=== PATIENT | female | born 1990 | race Caucasian/White ===

== ENCOUNTER → 2020-08-05 | Outpatient (CLI) | payer BC ==
[~2020-08-05] MED LIST: ADVIL CHIL100 MG/5 M PO; OXYCODONE H5 MG/5 ML PO; PRENATAL 19 CH1 EACH PO
== END | disposition still patient (30) ==
LOC: ZCOL.LAB 08:00
DX: Z20.828 Contact with and (suspected) exposure to other viral communicable diseases (principal)

== ENCOUNTER 2020-08-06 03:40 | Inpatient (IN) | payer BC ==
[~2020-08-06] VITALS: Ht 157.5 cm; Wt 70.9 kg
[2020-08-06] VITALS (68 sets, daily range): BP systolic 92–144; BP diastolic 43–81; PULSE 80–133; TEMP 98.6–100.7
--- NOTE | 2020-08-06 03:15 | NUR ---
0315- PT. AMBULATORY TO THE UNIT WITH BY HER SIDE. ORIENTATED TO ROOM AND CHANGED INTO CLEAN GOWN. REPORTS GFM, CTX SINCE LAST NIGHT AFTER DINNER AND SROM AT 0240 AT HOME WITH A LARGE GUSH OF WATER. 0323- EFM AND TOCO ON AND TRACING. VITALS TAKEN, ASSESSMENT COMPLETED. SVE /-3 WITH POSITIVE AMNIOTRACE INDICATED. 0335- PROVIDER TEST CELL TECHNICIAN NOTIFIED AND ADMISSION ORDERS OBTAINED, SEE PHYSICIAN NOTIFICATION.
[2020-08-06] MEDS ORDERED: PRENATAL 19 CH1 EACH PO (03:57)
[2020-08-06 05:09] LABS: BASO # 0.1 (0.0-0.2); BASO % 0.5 % (0.0-2.0); EOS # 0.2 (0.0-0.7); EOS % 1.3 % (0-4.0); GRAN # 10.4 (1.4-6.5); GRAN % 78.4 % (42.2-75.2); HEMATOCRIT 37.3 % (37.0-47.0); HEMOGLOBIN 12.6 g/dl (12.5-16.0); LYMPH # 1.8 (1.2-3.4); LYMPH % 13.5 % (20.0-51.0); MEAN CELL VOLUME 90 fl (80.0-100.0); MEAN CORPUSCULAR HEMOGLOBIN 30 pg (27.0-31.0); MEAN CORPUSCULAR HGB CONC 34 g/dl (33.0-37.0); MEAN PLATELET VOLUME 12.1 fl (7.4-10.4); MONO # 0.8 (0.1-0.6); MONO % 5.9 % (1.7-9.3); PLATELET COUNT 180 K/mm3 (130-400); RED BLOOD COUNT 4.16 M/mm3 (4.10-5.30); REDCELL DISTRIBUTION WIDTH-CV 13.2 % (11.5-14.5)
--- NOTE | 2020-08-06 06:30 | NUR ---
Pt up to bathroom, voids. Pt requesting epidural, LR bolus started at this time. Robyn WEISS called to notify. 704: Robyn WEISS here and pt repositioned to sitting. Epidural placed and test dose at 0714. Pt tolerated well
--- NOTE | 2020-08-06 07:30 | NUR ---
Physician here and updated on pt status and epidural placement. Notified of maternal temperatures being 99.0-99.1 orally and maternal at times tachy. No new orders, will cotinue to monitor. Covid test done yesterday and results pending. 0745:Orders to start pitocin at this time. Pit started at 2mu. SVE by physician.
--- NOTE | 2020-08-06 08:45 | NUR ---
mccartney catheter placed, SVE: 3-/-2. Pt repositioned to left lateral and peanut ball in place. 0900:Dr Kohler here, reviewing monitor strip. Intermittent varialbles noted. IUPC placed by physician. SVE: 3-/-2. Pericare done and pt repositioned.
--- NOTE | 2020-08-06 12:40 | NUR ---
Dr Kohler here and at bedside. SVE: /-1. Pt repositioned to sitting up. Physician reviews monitor strip and will continue to monitor and plan of care.
--- NOTE | 2020-08-06 13:29 | NUR ---
Pt repositioned to left and right side lying release for 20 minutes. Pt then repositioned to left lateral. SVE: /-1.
--- NOTE | 2020-08-06 16:25 | NUR ---
Dr Kohler called and requested pt to be checked. SVE: /0. Dr Kohler called and updated and notified of recent temp of 99.4. orally. Will continue to monitor and recheck cervix at 1730 and call with update. FHR with intermittent decels/early's with moderate variability and accels noted.
--- NOTE | 2020-08-06 19:00 | NUR ---
1900 - Repositioned patient to right side for comfort. 190 - FHR deceleration down to 80s. Changed position, fluid bolus initiated, SVE unchanged from previous exam, pitocin off, oxygen on. Physician notified, see physician notification 1904 - FHR returns to baseline of 135 bpm.
--- NOTE | 2020-08-06 19:10 | NUR ---
1909 - Dr. Kohler at bedside discussing plan of care with patient and spouse. Will proceed with section for non reassuring status. Armin Arnold CRNA notified. 1914 - Incision site clipped and cleansed by REYES Chen. 1921 - Monitors off to OR. No FHR in OR per Dr. Kohler.
[2020-08-07] VITALS: BP 105/62; PULSE 90; TEMP 98.7
[2020-08-07 04:05] VITALS: BP 118/69; PULSE 94; TEMP 98.7
[2020-08-07 07:15] VITALS: BP 113/70; PULSE 95; TEMP 98.1
[2020-08-07] MEDS ORDERED: ADVIL CHIL100 MG/5 M PO (08:38)
[2020-08-07] MEDS ORDERED: OXYCODONE H5 MG/5 ML PO (08:39)
--- NOTE | 2020-08-07 09:23 | NUR ---
Initial visit; Parents thanked Hull Inspector for offering congratulations and God's blessings for the of their daughter. Hull Inspector thanked family for choosing [facility].
[2020-08-07 11:50] VITALS: BP 104/57; PULSE 86; TEMP 97.9
[2020-08-07 15:50] VITALS: BP 114/64; PULSE 89; TEMP 97.7
[2020-08-07 20:20] VITALS: BP 113/67; PULSE 91; TEMP 97.6
--- NOTE | 2020-08-07 22:00 | NUR ---
Pt showered and dressing removed without complications. Incision with no redness or drainage and edges approximated.
[2020-08-08 09:26] VITALS: BP 118/72; PULSE 76; TEMP 98.2
[2020-08-08 16:45] VITALS: BP 128/72; PULSE 72; TEMP 98.1
[2020-08-08 21:15] VITALS: BP 119/57; PULSE 97; TEMP 99
[2020-08-09 08:00] VITALS: BP 127/65; PULSE 106; TEMP 98
[2020-08-09 11:00] VITALS: BP 125/75; PULSE 90; TEMP 98
== END 2020-08-09 11:05 | disposition home or self-care (01) | DRG 787 ==
LOC: LDRO 03:40 → LDR 04:02 → OB 20:17
PROVIDERS: ADMIT Obstetrics & Gynecology
PROC: 10D00Z1 Extraction of Products of Conception, Low, Open Approach (ICD-10-PCS; principal; 2020-08-06)
DX: O48.0 Post-term pregnancy (principal); G61.0 Guillain-Barre syndrome; Z3A.40 40 weeks gestation of pregnancy; Z37.0 Single live birth; O75.89 Other specified complications of labor and delivery
CPT/HCPCS: J0290; J1100; J1580; J1885; J2210; J2405; J2590; J7120

== ENCOUNTER 2022-04-23 16:13 | Inpatient (IN) | payer BC ==
[~2022-04-23] VITALS: Ht 157.5 cm; Wt 70.5 kg
[2022-04-24] VITALS (15 sets, daily range): BP systolic 84–118; BP diastolic 40–86; PULSE 70–98; TEMP 98.2–98.8
--- NOTE | 2022-04-24 07:10 | NUR ---
0710 PT AMBULATORY TO UNIT WITH SPOUSE. PT TAKEN TO ROOM WHERE SHE CHANGED INTO A GOWN. PT COMFORTABLE IN BED. EFM AND TOCO TRACING. PT MONS PUBIS CLIPPED AND ABDOMEN PREPPED. LR BOLUS RUNNING. UPDATED ON PLAN OF CARE, PT AGREEABLE. REPORTS NO CTX, NO LEAKING OF FLUID, AND POSITIVE MOVEMENT. WILL CONTINUE TO MONITOR,
[2022-04-24 08:23] LABS: BASO # 0.1 K/mm3 (0.0-0.2); BASO % 0.8 % (0.0-2.0); EOS # 0.2 K/mm3 (0.0-0.7); EOS % 2.3 % (0.0-4.0); GRAN # 4.7 K/mm3 (1.4-6.5); GRAN % 60.9 % (42.2-75.2); HEMOGLOBIN 11.9 g/dl (12.5-16.0); LYMPH # 2.1 K/mm3 (1.2-3.4); LYMPH % 27.3 % (20.0-51.0); MEAN CELL VOLUME 87 fl (80.0-100.0); MEAN CORPUSCULAR HEMOGLOBIN 30 pg (27-31); MEAN CORPUSCULAR HGB CONC 34 g/dl (33.0-37.0); MEAN PLATELET VOLUME 12.8 fl (7.4-10.4); MONO # 0.6 K/mm3 (0.1-0.6); MONO % 8.3 % (1.7-9.3); PLATELET COUNT 163 K/mm3 (130-400); RED BLOOD COUNT 4.03 M/mm3 (4.10-5.30); REDCELL DISTRIBUTION WIDTH-CV 13.2 % (11.5-14.5)
[2022-04-24 08:40] LABS: HEMATOCRIT 35.1 % (37.0-47.0)
--- NOTE | 2022-04-24 17:10 | NUR ---
THIS RN ASSUMING CARE. CARE ONGOING.
[2022-04-25 00:30] VITALS: BP 120/74; PULSE 81; TEMP 98.3
[2022-04-25 04:15] VITALS: BP 116/70; PULSE 76; TEMP 98.1
[2022-04-25 08:11] VITALS: BP 112/65; PULSE 75; TEMP 98.6
[2022-04-25 16:37] VITALS: BP 105/61; PULSE 71; TEMP 98.6
[2022-04-25 20:00] VITALS: BP 116/74; PULSE 85; TEMP 98.5
[2022-04-26] MEDS ORDERED: MOTRIN SUSP20 MG/ML PO (08:08)
[2022-04-26 08:15] VITALS: BP 125/69; PULSE 101; TEMP 97.9
--- NOTE | 2022-04-26 09:47 | NUR ---
Initial visit; Parents thanked Artifacts Conservator for offering congratulations and God's blessings for the of their son. Artifacts Conservator thanked family for choosing [facility].
--- NOTE | 2022-04-26 11:05 | NUR ---
Discharge instructions and follow up care reviewed with pt and at the bedside. Both verbalized an understanding, agreed with the plan and states no questions or concerns at this time.
== END 2022-04-26 11:45 | disposition home or self-care (01) | DRG 788 ==
LOC: OB 04-24 07:00
PROVIDERS: ADMIT Obstetrics & Gynecology
PROC: 10D00Z1 Extraction of Products of Conception, Low, Open Approach (ICD-10-PCS; principal; 2022-04-24)
DX: O99.62 Diseases of the digestive system complicating childbirth (principal); K21.9 Gastro-esophageal reflux disease without esophagitis; Z3A.39 39 weeks gestation of pregnancy; Z37.0 Single live birth; Z88.7 Allergy status to serum and vaccine; O99.354 Diseases of the nervous system complicating childbirth; G43.909 Migraine, unspecified, not intractable, without status migrainosus
CPT/HCPCS: J0690; J1100; J1885; J2370; J2405; J2590; J7120